=== PATIENT | female | born 1990 ===

== ENCOUNTER 2021-07-26 16:49 | Emergency (ER) | payer MEDICAID ==
[2021-07-26 16:58] VITALS: BP 113/75
[2021-07-26] MEDS ORDERED: FAMOTIDINE 20 MG TAB PO ONE (20:32)
[2021-07-26] MEDS ORDERED: METOCLOPRAMIDE 10 MG TAB PO ONE (20:32)
[2021-07-26] MEDS ORDERED: ACETAMINOPHEN 500 MG TAB PO ONE (20:32)
[2021-07-26 21:35] LABS: Basophils % (Auto) 0.3 % (0.0-1.8); Eosinophils # (Auto) 0.1 K/mm3 (0.0-0.4); Eosinophils % (Auto) 0.6 % (0.0-4.3); Hematocrit 40.8 % (30.3-42.9); Hemoglobin 13.5 gm/dl (10.1-14.3); Lymphocytes % (Auto) 21.9 % (13.4-35.0); Mean Corpuscular HGB Conc 33 % (30-34); Mean Corpuscular Volume 94 fl (79-97); Monocytes # (Auto) 0.6 K/mm3 (0.0-0.8); Monocytes % (Auto) 6.7 % (0.0-7.3); Platelet Count 212 K/mm3 (140-440); Red Blood Count 4.33 M/mm3 (3.65-5.03); Red Cell Distribution Width 13.5 % (13.2-15.2)
[2021-07-26 21:41] LABS: Alanine Aminotransferase 12 units/L (7-56); Albumin 4.4 g/dL (3.9-5); Blood Urea Nitrogen 7 mg/dL (7-17); Calcium 9.3 mg/dL (8.4-10.2); Hemolysis Index 74
[2021-07-26 21:57] LABS: BUN/Creatinine Ratio 14
--- NOTE | 2021-07-27 00:36 | Ultrasound Report ---
ULTRASOUND OBSTETRIC INDICATION / CLINICAL INFORMATION: ABDOMINAL PAIN - . Serum hCG = 34,773 - Clinical Gestational Age (GA) in weeks, days: Unknown TECHNIQUE: Transabdominal. COMPARISON: None available. FINDINGS: GESTATIONAL SAC: Well-defined oval shape and intrauterine in location. YOLK SAC: No significant abnormality. EMBRYO/FETUS: No significant abnormality. - [place]-Rump Length = 0.32 cm = 6, 0 weeks, days - Heart Rate, beats per minute (if present) = 101 ADNEXA: Right ovary appears within normal limits. Left ovary not visualized. FREE FLUID: None. ADDITIONAL FINDINGS: None. IMPRESSION: 1. Single, living intrauterine with estimated sonographic age of 6, 0 weeks, days. 2. No acute sonographic abnormality. Signer Name: Darci Lewis MD Signed: 07/27/2021 12:32 AM Workstation Name: [id number]
[2021-07-27 01:26] LABS: Bilirubin,Urine NEG (Negative); Blood,Urine NEG (Negative); Color,Urine Yellow (Yellow); Mucus,Urine 1+ /HPF; Protein,Urine <15 mg/dL mg/dL (Negative); Urobilinogen,Urine < 2.0 mg/dL (<2.0)
--- NOTE | 2021-07-27 01:49 | Emergency Department Report ---
ED Abdominal Pain HPI - General Chief Complaint: Abdominal Pain Stated Complaint: LOWER ABD PAIN Source: patient Mode of arrival: Ambulatory Limitations: No Limitations - History of Present Illness Initial Comments: Patient is a A0 30-year-old [place] female with no past medical history and who is approximately 5 weeks gestation presents to the ED with complaint of acute onset persistent diffuse lower abdominal pain for the last 4 days. Patient states that the pain has been persistent, constant and worse with movement. Patient stated that her LMP was June 11, 2021. Patient denies dizziness, syncope, chest pain, shortness of breath, sore throat, cough, headache, palpitations, nausea and vomiting or diarrhea, dysuria, urinary frequency and urgency, low back pain, fever and chills, vaginal bleeding or vaginal discharge and low back pain. MD Complaint: abdominal pain -: Sudden, days(s) (4) Location: LLQ, RLQ, suprapubic Radiation: none Migration to: no migration Severity scale (0 -10): 5 Quality: cramping, sharp Consistency: constant Improves With: nothing Worsens With: nothing Associated Symptoms: denies other symptoms, nausea, vomiting, anorexia. denies: diarrhea, chills, constipation, hematemesis, hematochezia, melena, syncope, other - Related Data LMP Date: 06/11/21 Previous Rx's Medication Instructions Recorded Last Taken Type Acetaminophen [Tylenol] 500 mg PO Q6HR PRN #30 tablet 07/27/21 Unknown Rx Allergies Allergy/AdvReac Type Severity Reaction Status Date / Time No Known Allergies Allergy Unverified 07/26/21 16:52 ED Review of Systems ROS: Stated complaint: LOWER ABD PAIN Other details as noted in HPI Constitutional: denies: chills, fever Eyes: denies: eye pain, eye discharge, vision change ENT: denies: ear pain, throat pain Respiratory: denies: cough, shortness of breath, wheezing Cardiovascular: denies: chest pain, palpitations Endocrine: no symptoms reported Gastrointestinal: abdominal pain (lower), nausea, vomiting. denies: diarrhea Genitourinary: denies: urgency, dysuria, discharge Musculoskeletal: denies: back pain, joint swelling, arthralgia Skin: denies: rash, lesions Neurological: denies: headache, weakness, paresthesias Psychiatric: denies: anxiety, depression Hematological/Lymphatic: denies: easy bleeding, easy bruising ED Past Medical Hx - Past Medical History Previous Medical History?: No - Surgical History Past Surgical History?: No - Medications Home Medications: Home Medications Medication Instructions Recorded Confirmed Last Taken Type Acetaminophen [Tylenol] 500 mg PO Q6HR PRN #30 tablet 07/27/21 Unknown Rx ED Physical Exam - General Limitations: No Limitations General appearance: alert, in no apparent distress - Head Head exam: Present: atraumatic, normocephalic, normal inspection - Eye Eye exam: Present: normal appearance, PERRL, EOMI Pupils: Present: normal accommodation - ENT ENT exam: Present: normal exam, normal orophraynx, mucous membranes moist, TM's normal bilaterally, normal external ear exam - Neck Neck exam: Present: normal inspection, full ROM - Respiratory Respiratory exam: Present: normal lung sounds bilaterally. Absent: respiratory distress, wheezes, rales, rhonchi, chest wall tenderness - Cardiovascular Cardiovascular Exam: Present: regular rate, normal rhythm, normal heart sounds. Absent: systolic murmur, diastolic murmur, rubs, gallop - GI/Abdominal GI/Abdominal exam: Present: soft, tenderness (palpable suprapubic tenderness), normal bowel sounds. Absent: guarding, rebound, hyperactive bowel sounds, hypoactive bowel sounds, organomegaly, mass - Extremities Exam Extremities exam: Present: normal inspection, full ROM, normal capillary refill - Back Exam Back exam: Present: normal inspection, full ROM. Absent: tenderness, CVA tenderness (R), CVA tenderness (L), muscle spasm, paraspinal tenderness, vertebral tenderness - Neurological Exam Neurological exam: Present: alert, oriented X3, CN II-XII intact, normal gait, reflexes normal - Psychiatric Psychiatric exam: Present: normal affect, normal mood - Skin Skin exam: Present: warm, dry, intact, normal color. Absent: rash ED Course Vital Signs 07/26/21 07/27/21 16:54 02:30 Temperature 98.7 F Pulse Rate 69 69 Respiratory 20 17 Rate Blood Pressure 113/75 O2 Sat by Pulse 99 100 Oximetry ED Medical Decision Making - Lab Data Result diagrams: 07/26/21 20:40 07/26/21 20:40 - Radiology Data Radiology results: report reviewed, image reviewed [facility] [address] [place] [address] Ultrasound Report Signed Patient: LES JUARES MR#: [id number] : 1990 Acct:[id number] Age/Sex: 30 / F ADM Date: 07/26/21 Loc: ED Attending Dr: Ordering Physician: MADELINE SPRINGER Date of Service: 07/26/21 Procedure(s): US OB <= 14 weeks fetus Accession Number(s): [id number] cc: MADELINE SPRINGER ULTRASOUND OBSTETRIC INDICATION / CLINICAL INFORMATION: ABDOMINAL PAIN - . Serum hCG = 34,773 - Clinical Gestational Age (GA) in weeks, days: Unknown TECHNIQUE: Transabdominal. COMPARISON: None available. FINDINGS: GESTATIONAL SAC: Well-defined oval shape and intrauterine in location. YOLK SAC: No significant abnormality. EMBRYO/FETUS: No significant abnormality. - [place]-Rump Length = 0.32 cm = 6, 0 weeks, days - Heart Rate, beats per minute (if present) = 101 ADNEXA: Right ovary appears within normal limits. Left ovary not visualized. FREE FLUID: None. ADDITIONAL FINDINGS: None. IMPRESSION: 1. Single, living intrauterine with estimated sonographic age of 6, 0 weeks, days. 2. No acute sonographic abnormality. Signer Name: Darci Lewis MD Signed: 07/27/2021 12:32 AM Workstation Name: [id number] Transcribed By: DT Dictated By: Gideon Lewis MD Electronically Authenticated By: Gideon Lewis MD Signed Date/Time: 07/27/2131 DD/ TD/TT: - Medical Decision Making This is a A0 30-year-old [place] female with no past medical history and who is approximately 5 weeks gestation presents to the ED with complaint of acute onset persistent diffuse lower abdominal pain for the last 4 days. Patient states that the pain has been persistent, constant and worse with movement. Patient stated that her LMP was June 11, 2021. In the ED, patient is alert and oriented x3 and is not in distress. Patient is hemodynamically stable. Lab test results were reviewed and are all [place] [id number]. Patient was treated for pain with Tylenol in the ED. transvag inal ultrasound showed a single, living intrauterine with estimated sonographic age of 6, 0 weeks, days. No other acute sonographic abnormality identified. On reevaluation, patient's pain resolved medication. Patient is ambulatory in the ED with no difficulty. Patient will discharge home and advised to take Tylenol as needed for pain and to follow-up with her [facility] physician in 3 to 5 days for reevaluation or return to the ED immediately if symptoms get worse. - Differential Diagnosis UTI; Ovarian cyst; ectopic ; dysmenorrhea Critical care attestation.: If time is entered above; I have spent that time in minutes in the direct care of this critically ill patient, excluding procedure time. ED Disposition Clinical Impression: Abdominal pain during in first trimester, test positive for incidental Disposition: HOME / SELF CARE / HOMELESS Is pt being admited?: No Does the pt Need Aspirin: No Condition: Stable Instructions: Abdominal Pain During , [id number], First Trimester of , [id number], Abdominal Pain (ED) Additional Instructions: All lab test results were reviewed and are all nonactionable. The transvaginal ultrasound showed a single live intrauterine of approximately 6 weeks and 0 days, and with a heart rate of 101 bpm. Therefore take Tylenol as needed for pain, drink plenty of fluids and follow-up with your [facility] physician as advised in 3 to 5 days for reevaluation. Return to the ED immediately if symptoms get worse. Prescriptions: Acetaminophen [Tylenol] 500 mg PO Q6HR PRN #30 tablet PRN Reason: Pain , Severe (7-10) Referrals: MICHEAL HOBSON MD [Staff Physician] - 3-5 Days Time of Disposition: 01:51 Print Language: MICRONESIAN
== END 2021-07-27 02:20 | disposition home or self-care (01) ==
LOC: ED 16:49
DX: O26.891 Other specified pregnancy related conditions, first trimester (principal); R10.30 Lower abdominal pain, unspecified; Z3A.01 Less than 8 weeks gestation of pregnancy; Z79.899 Other long term (current) drug therapy
CPT/HCPCS: 36415; 76801; 80053; 81001; 83690; 84702; 85025; 99284